=== PATIENT | male | born 1955 | race Caucasian/White ===

== ENCOUNTER 2021-07-07 13:26 | Emergency (ER) | payer BC ==
[~2021-07-07] VITALS: Ht 182.9 cm; Wt 150.0 kg
[2021-07-07] MEDS ORDERED: NITROGLYCERIN SUBLINGUAL 0.4 MG BOTTLE OF 25. SL PRN (13:45)
--- NOTE | 2021-07-07 13:45 | PHYS DOC ---
Adult General Chief Complaint Chief Complaint: CHEST PAIN HPI HPI Patient is a 65-year-old male presenting for chest pressure. Onset was this morning shortly after waking up. Nothing known makes better or worse. Reports pain is deep in mid chest and often radiates to her right shoulder and lower back. States severity of pain has waxed and waned, was 8 or 9 for several hours today but decreased down and on arrival to ER is 5 out of 10 in severity. Denies any significant history of CAD or other pulmonary abnormalities such as blood clots or other coagulopathies. Does admit he sees a junior architect in outpatient setting, had a stress test that was -2 years ago but currently takes a statin and Plavix daily for prevention purposes only. Denies any tobacco alcohol or illicit drug abuse. No recent sick contacts or travel. He is fully vaccinated against COVID-19 and received booster (Moderna) Review of Systems Review of Systems Fourteen body systems of review of systems have been reviewed. See HPI for pertinent positives and negative responses, other ortiz all other systems are negative, non-pertinent or non-contributory Allergies Allergies Allergies Coded Allergies Type Severity Reaction Last Updated Verified fenofibrate Allergy Intermediate flush red skin 07/07/21 Yes Uncoded Allergies Type Severity Reaction Last Updated Verified ASA Adverse Reaction Unknown 07/07/21 Physical Exam Physical Exam Constitutional: Well developed, well nourished, no acute distress, non-toxic appearance. HENT: Normocephalic, atraumatic, bilateral external ears normal, oropharynx moist, no oral exudates, nose normal. Eyes: PERRLA, EOMI, conjunctiva normal, no discharge. Neck: Normal range of motion, no tenderness, supple, no stridor. Cardiovascular: Heart rate regular, sinus rhythm, no murmurs rubs or gallops Lungs & Thorax: Bilateral breath sounds clear to auscultation Abdomen: Bowel sounds normal, soft, no tenderness, no masses, no pulsatile masses. Nonsurgical abdomen, no peritoneal signs Skin: Warm, dry, no erythema, no rash. Back: No tenderness, no CVA tenderness. Extremities: No tenderness, no cyanosis, no clubbing, ROM intact, no edema. Neurologic: Alert and oriented X 3, grossly normal motor & sensory function, no focal deficits noted. Psychologic: Affect normal, judgement normal, mood normal. Current Patient Data Vital Signs Vital Signs Date Time Temp Pulse Resp B/P (MAP) Pulse Ox O2 Delivery O2 Flow Rate FiO2 07/07/21 13:40 67 18 143/77 (99) Room Air Vital Signs Date Time Temp Pulse Resp B/P (MAP) Pulse Ox O2 Delivery O2 Flow Rate FiO2 07/07/21 13:40 67 18 143/77 (99) Room Air Lab Results Laboratory Tests Test 07/07/21 13:36 07/07/21 13:56 White Blood Count 7.9 x10^3/uL Red Blood Count 3.96 x10^6/uL Hemoglobin 12.7 g/dL Hematocrit 38.6 % Mean Corpuscular Volume 97 fL Mean Corpuscular Hemoglobin 32 pg Mean Corpuscular Hemoglobin Concent 33 g/dL Red Cell Distribution Width 13.8 % Platelet Count 210 x10^3/uL Neutrophils (%) (Auto) 73 % Lymphocytes (%) (Auto) 12 % Monocytes (%) (Auto) 9 % Eosinophils (%) (Auto) 6 % Basophils (%) (Auto) 1 % Neutrophils # (Auto) 5.8 x10^3uL Lymphocytes # (Auto) 0.9 x10^3/uL Monocytes # (Auto) 0.7 x10^3/uL Eosinophils # (Auto) 0.5 x10^3/uL Basophils # (Auto) 0.1 x10^3/uL D-Dimer (Chloe) 0.51 mg/L Sodium Level 142 mmol/L Potassium Level 4.2 mmol/L Chloride Level 106 mmol/L Carbon Dioxide Level 23 mmol/L Anion Gap 13 Blood Urea Nitrogen 30 mg/dL Creatinine 1.5 mg/dL Estimated GFR (Cockcroft-Gault) 47.0 Glucose Level 123 mg/dL Calcium Level 7.2 mg/dL Troponin I High Sensitivity 6 ng/L [id number] Natriuretic Peptide 436 pg/mL Current Medications Medications (Trade) Dose Ordered Sig/Aliyah Route PRN Reason Start Time Stop Time Status Last Admin Dose Admin Aspirin (Aspirin Chewable) 162 mg 1X ONCE PO 07/07/21 14:00 07/07/21 14:01 DC 07/07/21 14:28 Nitroglycerin (Nitrostat) 0.4 mg PRN Q5MIN PRN SL CP RATING > 08/1707/07/21 13:45 07/08/21 13:44 07/07/21 14:29 EKG EKG EKG ordered and interpreted by myself at 1345 hrs. is sinus rhythm at 65 bpm, unremarkable intervals, left axis deviation, no obvious ischemic findings, no STEMI Radiology/Procedures Radiology/Procedures XR CHEST 1V CLINICAL INDICATIONS: Reason: chest pain / Spl. Instructions: / History: COMPARISON: February 16, 2007. Findings: Bilateral chronic interstitial lung infiltrates or chronic bronchitis is seen. No new lung consolidation or pleural effusion or pneumothorax is apparent. The heart size, pulmonary vasculature, mediastinum and both purvi are unremarkable. IMPRESSION: Chronic interstitial lung infiltrates or chronic bronchitis bilaterally. No new abnormality. Electronically signed by: Bony Blue MD (07/07/2021 2:08 PM) [id number] Heart Score C/O Chest Pain: Yes HEART Score for Chest Pain: HEART Score for Chest Pain Response (Comments) Value History Moderately Suspicious 1 ECG Nonspecific Repolarizatio 1 Age >45 - < 65 1 Risk Factors 1 or 2 Risk Factors 1 Troponin < Normal Limit 0 Total 4 Risk Factors: Risk Factors: DM, Current or recent (<one month) smoker, HTN, HLP, family history of CAD, obesity. Risk Scores: Risk Factors: DM, Current or recent (<one month) smoker, HTN, HLP, family history of CAD, obesity. Course & Med Decision Making Course & Med Decision Making ABCs unremarkable HPI physical exam and comprehensive ER work-up nonconcerning for any emergent or surgical issues HEART score elevated, cannot PERC out but age-related d-dimer unremarkable I discussed and recommended cardiac observation given heart score in presenting symptoms but patient declined. I discussed without this I could not definitively rule out potentially life-threatening pathology such as ACS versus other and patient understood Patient reports he has previously scheduled PCP follow-up tomorrow and will discuss ER visit today need for close outpatient follow-up and provocative cardiac testing at that time which I feel is appropriate. Strict return precautions discussed and understood by patient, all questions and concerns addressed prior to ER departure Ariella Disclaimer Giannion Disclaimer This electronic medical record was generated, in whole or in part, using a voice recognition dictation system. Departure Departure: Impression: Primary Impression: Chest pain Disposition: HOME / SELF CARE / HOMELESS Condition: STABLE Referrals: TASHA RANKIN MD (PCP) Additional Instructions: You were seen for chest pain. Your workup did not show any acute abnormalities today, but does not indicate that you do not have underlying cardiovascular dis ease. You do need to follow up with your primary doctor tomorrow as previously scheduled to discuss need for close outpatient stress test and/or echocardiogram. You should return to the ED if you develop worsening chest pain, shortness of breath, fever, abnormal sweating, leg swelling, or any other new or concerning symptoms. JJ RADFORD DO Jul 07, 2021 13:45
[2021-07-07] MEDS ORDERED: ASPIRIN CHEWABLE 81 MG TABLET. PO ONE (14:00)
--- NOTE | 2021-07-07 14:10 | RAD ---
XR CHEST 1V CLINICAL INDICATIONS: Reason: chest pain / Spl. Instructions: / History: COMPARISON: February 16, 2007. Findings: Bilateral chronic interstitial lung infiltrates or chronic bronchitis is seen. No new lung consolidation or pleural effusion or pneumothorax is apparent. The heart size, pulmonary vasculature, mediastinum and both purvi are unremarkable. IMPRESSION: Chronic interstitial lung infiltrates or chronic bronchitis bilaterally. No new abnormali ty. Electronically signed by: Bony Blue MD (07/07/2021 2:08 PM) [id number]
[2021-07-07 14:13] LABS: BASO # 0.1 x10^3/uL (0.0-0.2); BASO % 1 % (0-3); EOS # 0.5 x10^3/uL (0.0-0.7); EOS % 6 % (0-3); HEMATOCRIT 38.6 % (39.0-53.0); HEMOGLOBIN 12.7 g/dL (13.0-17.5); LYMPH # 0.9 x10^3/uL (1.0-4.8); LYMPH % 12 % (24-48); MEAN CORPUSCULAR HEMOGLOBIN 32 pg (25-35); MEAN CORPUSCULAR HGB CONC 33 g/dL (31-37); MEAN CORPUSCULAR VOLUME 97 fL (79-100); MONO # 0.7 x10^3/uL (0.0-1.1); MONO % 9 % (0-9); NEUT # 5.8 x10^3uL (1.8-7.7); NEUT % 73 % (31-73); PLATELET COUNT 210 x10^3/uL (140-400); RED BLOOD COUNT 3.96 x10^6/uL (4.30-5.70); RED CELL DISTRIBUTION WIDTH 13.8 % (11.5-14.5); WHITE BLOOD COUNT 7.9 x10^3/uL (4.0-11.0)
[2021-07-07 14:27] LABS: CALCIUM 7.2 mg/dL (8.5-10.1); CREATININE 1.5 mg/dL (0.7-1.3); POTASSIUM 4.2 mmol/L (3.5-5.1)
[2021-07-07 14:29] VITALS: BP 141/71
--- NOTE | 2021-07-07 16:18 | EKG ---
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
== END 2021-07-07 17:07 | disposition home or self-care (01) ==
LOC: ER 13:26
DX: R07.89 Other chest pain (principal); Z88.8 Allergy status to other drugs, medicaments and biological substances
CPT/HCPCS: 36415; 71045; 80048; 83880; 84484; 85025; 85379; 93005; 99285

== ENCOUNTER 2021-12-04 04:28 | Emergency (ER) | payer BC, MEDICARE ==
[~2021-12-04] VITALS: Ht 182.9 cm; Wt 150.0 kg
[2021-12-04] MEDS ORDERED: PROMETH/CODEINE 6.25/10MG 5 ML SYRUP. PO STA (04:52)
--- NOTE | 2021-12-04 04:57 | PHYS DOC ---
Past History Additional Past Medical Histor: chronic pedal edema, non hodgkins lymphoma Past Surgical History: Appendectomy, Cancer Surgery, Cholecystectomy, Gastric Bypass, Other Additional Past Surgical Histo: left femur repair, left knee replacement, bilat rotat cuff repair Alcohol Use: None General Adult EDM: Chief Complaint: COUGH HPI: HPI: Patient is a 60 show male coming in for cough and chest pain. Patient states he has had a cough productive of whitish phlegm for the past 3 days. Then started having mid chest pain that is worse with taking a breath or movement. Patient denies any fevers, vomiting or diarrhea. Patient has been fully vaccinated against COVID with his booster, influenza and pneumococcal vaccines. No known sick contacts. Patient has an inhaler that he uses as needed and has been using more recently. Has a history of childhood asthma. Quit smoking 30 years ago, denies any history of COPD Review of Systems: Review of Systems: All other systems within normal limits except for as noted in the HPI Allergies: Allergies: Allergies Coded Allergies Type Severity Reaction Last Updated Verified fenofibrate Allergy Intermediate flush red skin 07/07/21 Yes Physical Exam: PE: Constitutional: Well developed, well nourished, no acute distress, non-toxic appearance. [] HENT: Normocephalic, atraumatic, bilateral external ears normal, nose normal. [] Eyes: PERRLA, conjunctiva normal, no discharge. [] Neck: No rigidity, supple, no stridor. [] Cardiovascular: Regular rate and rhythm, brisk cap refill [] Lungs & Thorax: Non labored symmetric respirations, no tachypnea or respiratory distress. Diffuse bilateral wheezing, chest pain reproducible with palpation [] Abdomen: Soft, nondistended. Skin: Warm, dry, no erythema, no rash. [] Back: Unremarkable Extremities: No deformities, range of motion grossly intact, no lower extremity edema [] Neurologic: Alert and oriented X 3, no focal deficits noted. [] Psychologic: Affect normal, judgement normal, mood normal. [] Current Patient Data: Vital Signs: Vital Signs Date Time Temp Pulse Resp B/P (MAP) Pulse Ox O2 Delivery O2 Flow Rate FiO2 12/04/21 04:28 68 24 157/80 (105) 92 Room Air EKG: EKG: Sinus rhythm, left axis deviation, no STEMI, heart rate 68 beats minute [] Radiology/Procedures: Radiology/Procedures: [] Heart Score: C/O Chest Pain: Yes HEART Score for Chest Pain: HEART Score for Chest Pain Response (Comments) Value History Slighlty/Non-Suspicious 0 Total 0 Risk Factors: Risk Factors: DM, Current or recent (<one month) smoker, HTN, HLP, family history of CAD, obesity. Risk Scores: Score 0 - 3: 2.5% MACE over next 6 weeks - Discharge Home Score 4 - 6: 20.3% MACE over next 6 weeks - Admit for Clinical Observation Score 7 - 10: 72.7% MACE over next 6 weeks - Early Invasive Strategies Course & Med Decision Making: Course & Med Decision Making Pertinent Labs and Imaging studies reviewed. (See chart for details) Patient states he is breathing easier after the DuoNeb. Still has some diffuse but improved wheezes. Pending second DuoNeb, chest x-ray, and rapid COVID and flu results at shift change Dragon Disclaimer: Ariella Disclaimer: This electronic medical record was generated, in whole or in part, using a voice recognition dictation system. Departure Departure: Referrals: SYLVESTER MACIEL MD (PCP) CHIKI PARKER MD Dec 04, 2021 04:57
[2021-12-04] MEDS ORDERED: methylPREDNISolone SOD SUCC PF 125 MG/2 ML VIAL. IV ONE (05:00)
[2021-12-04] MEDS ORDERED: IPRATRPIUM/ALBUTEROL 0.5/2.5MG 3 ML NEBU. NEB ONE ×2 (05:00→06:00)
[2021-12-04 05:03] LABS: BASO # 0.1 x10^3/uL (0.0-0.2); BASO % 1 % (0-3); EOS # 0.7 x10^3/uL (0.0-0.7); EOS % 9 % (0-3); HEMATOCRIT 38.6 % (39.0-53.0); HEMOGLOBIN 13.2 g/dL (13.0-17.5); LYMPH # 1.1 x10^3/uL (1.0-4.8); LYMPH % 13 % (24-48); MEAN CORPUSCULAR HEMOGLOBIN 33 pg (25-35); MEAN CORPUSCULAR HGB CONC 34 g/dL (31-37); MEAN CORPUSCULAR VOLUME 97 fL (79-100); MONO # 0.7 x10^3/uL (0.0-1.1); MONO % 9 % (0-9); NEUT # 5.6 x10^3uL (1.8-7.7); NEUT % 68 % (31-73); PLATELET COUNT 236 x10^3/uL (140-400); RED BLOOD COUNT 3.98 x10^6/uL (4.30-5.70); RED CELL DISTRIBUTION WIDTH 14.4 % (11.5-14.5); WHITE BLOOD COUNT 8.3 x10^3/uL (4.0-11.0)
--- NOTE | 2021-12-04 05:09 | EKG ---
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
[2021-12-04 05:12] LABS: CALCIUM 7.8 mg/dL (8.5-10.1); CREATININE 1.3 mg/dL (0.7-1.3); GFR 55.2; POTASSIUM 4.4 mmol/L (3.5-5.1)
[2021-12-04 05:25] LABS: ALBUMIN 3.7 g/dL (3.4-5.0); ALBUMIN/GLOBULIN RATIO 1.4 (1.0-1.7); TOTAL BILIRUBIN 0.8 mg/dL (0.2-1.0); TOTAL PROTEIN 6.4 g/dL (6.4-8.2)
--- NOTE | 2021-12-04 06:02 | RAD ---
Study: XR CHEST 2V Indication: Cough. Comparison: 07/07/2021 Findings: Unchanged cardiomediastinal silhouette. Slightly increased perihilar infiltrates. Peribronchial cuffi ng and interstitial prominence also seen previously. No pleural effusion or pneumothorax. Impression: Mildly increased perihilar infiltrates from the 07/07/2021 exam could indicate an atypical infectious process in the appropriate clinical setting. Electronically signed by: BLANCA LEVINE MD (12/04/2021 5:59 AM) [facility]
[2021-12-04 06:31] LABS: INFLUENZA A PATIENT NEGATIVE (NEGATIVE); INFLUENZA B PATIENT NEGATIVE (NEGATIVE)
[2021-12-04 06:35] VITALS: BP 149/73
[2021-12-04] MEDS ORDERED: DOXY100C3 PO ×2 (06:50→07:04)
[2021-12-04] MEDS ORDERED: PRED20TA PO ×2 (06:50→07:04)
[2021-12-04] MEDS ORDERED: ALBU2.5V8 INH ×2 (06:50→07:04)
--- NOTE | 2021-12-04 06:50 | PHYS DOC ---
Past History Additional Past Medical Histor: chronic pedal edema, non hodgkins lymphoma Past Surgical History: Appendectomy, Cancer Surgery, Cholecystectomy, Gastric Bypass, Other Additional Past Surgical Histo: left femur repair, left knee replacement, bilat rotat cuff repair Alcohol Use: None General Adult EDM: Chief Complaint: COUGH HPI: HPI: Please see note by Dr. Romero for initial H&P Current Medications: Current Meds: Current Medications Medications (Trade) Dose Ordered Sig/Aliyah Start Time Stop Time Status Last Admin Dose Admin Albuterol/ Ipratropium (Duoneb) 3 ml 1X ONCE 12/04/21 06:00 12/04/21 06:01 DC 12/04/21 05:49 3 ML Methylprednisolone Sodium Succinate (SOLU-Medrol 125MG VIAL) 125 mg 1X ONCE 12/04/21 05:00 12/04/21 05:03 DC 12/04/21 05:20 125 MG Promethazine HCl/ Codeine (Phenergan With Codeine Oral Syrup) 5 ml 1X STAT 12/04/21 04:52 12/04/21 05:03 DC 12/04/21 05:21 5 ML Allergies: Allergies: Allergies Coded Allergies Type Severity Reaction Last Updated Verified fenofibrate Allergy Intermediate flush red skin 07/07/21 Yes Current Patient Data: Labs: Laboratory Tests Test 12/04/21 04:40 12/04/21 05:44 White Blood Count 8.3 x10^3/uL (4.0-11.0) Red Blood Count 3.98 x10^6/uL (4.30-5.70) L Hemoglobin 13.2 g/dL (13.0-17.5) Hematocrit 38.6 % (39.0-53.0) L Mean Corpuscular Volume 97 fL (79-100) Mean Corpuscular Hemoglobin 33 pg (25-35) Mean Corpuscular Hemoglobin Concent 34 g/dL (31-37) Red Cell Distribution Width 14.4 % (11.5-14.5) Platelet Count 236 x10^3/uL (140-400) Neutrophils (%) (Auto) 68 % (31-73) Lymphocytes (%) (Auto) 13 % (24-48) L Monocytes (%) (Auto) 9 % (0-9) Eosinophils (%) (Auto) 9 % (0-3) H Basophils (%) (Auto) 1 % (0-3) Neutrophils # (Auto) 5.6 x10^3uL (1.8-7.7) Lymphocytes # (Auto) 1.1 x10^3/uL (1.0-4.8) Monocytes # (Auto) 0.7 x10^3/uL (0.0-1.1) Eosinophils # (Auto) 0.7 x10^3/uL (0.0-0.7) Basophils # (Auto) 0.1 x10^3/uL (0.0-0.2) Sodium Level 144 mmol/L (136-145) Potassium Level 4.4 mmol/L (3.5-5.1) Chloride Level 106 mmol/L (98-107) Carbon Dioxide Level 25 mmol/L (21-32) Anion Gap 13 (6-14) Blood Urea Nitrogen 21 mg/dL (8-26) Creatinine 1.3 mg/dL (0.7-1.3) Estimated GFR (Cockcroft-Gault) 55.2 BUN/Creatinine Ratio 16 (6-20) Glucose Level 125 mg/dL (70-99) H Calcium Level 7.8 mg/dL (8.5-10.1) L Total Bilirubin 0.8 mg/dL (0.2-1.0) Aspartate Amino Transferase (AST) 18 U/L (15-37) Alanine Aminotransferase (ALT) 30 U/L (16-63) Alkaline Phosphatase 122 U/L (46-116) H Troponin I High Sensitivity 7 ng/L (4-75) RJ-Qeu-W-Type Natriuretic Peptide 289 pg/mL (0-124) H Total Protein 6.4 g/dL (6.4-8.2) Albumin 3.7 g/dL (3.4-5.0) Albumin/Globulin Ratio 1.4 (1.0-1.7) Influenza Type A (Rapid) Negative (NEGATIVE) Influenza Type B (Rapid) Negative (NEGATIVE) SARS-CoV-2 Antigen (Rapid) Negative (NEGATIVE) Vital Signs: Vital Signs Date Time Temp Pulse Resp B/P (MAP) Pulse Ox O2 Delivery O2 Flow Rate FiO2 12/04/21 05:54 95 Room Air 12/04/21 05:43 72 20 132/48 (76) EKG: EKG: [] Radiology/Procedures: Radiology/Procedures: [] Heart Score: C/O Chest Pain: N/A Risk Factors: Risk Factors: DM, Current or recent (<one month) smoker, HTN, HLP, family history of CAD, obesity. Risk Scores: Score 0 - 3: 2.5% MACE over next 6 weeks - Discharge Home Score 4 - 6: 20.3% MACE over next 6 weeks - Admit for Clinical Observation Score 7 - 10: 72.7% MACE over next 6 weeks - Early Invasive Strategies Course & Med Decision Making: Course & Med Decision Making Pertinent Labs and Imaging studies reviewed. (See chart for details) [] Is a 66-year-old male came in with cough and shortness of breath. Patient chest x-ray is indicative of pneumonia. Labs are fairly unremarkable, influenza and COVID screens are negative. Patient was given a DuoNeb treatment and on reassessment he still has some wheezes but overall improved. Sats are 94% on room air, patient is a good candidate for out patient treatment, he is in stable condition at this time. Dragon Disclaimer: Dragon Disclaimer: This electronic medical record was generated, in whole or in part, using a voice recognition dictation system. Departure Departure: Impression: Primary Impression: Pneumonia Disposition: HOME / SELF CARE / HOMELESS Condition: STABLE Referrals: SYLVESTER MACIEL MD (PCP) Patient Instructions: Pneumonia, Adult Scripts Prednisone (PREDNISONE) 20 Mg Tablet 40 MG PO DAILY for bronchitis for 3 Days, #6 TAB Prov: MURALI MATA MD 12/04/21 Albuterol Sulfate (PROAIR HFA INHALER) 8.5 Gm Hfa.aer.ad 2 PUFF INH PRN Q6HRS PRN for SHORTNESS OF BREATH for 10 Days, #1 INHALER 0 Refills Prov: MURALI MATA MD 12/04/21 Doxycycline Hyclate (DOXYCYCLINE HYCLATE) 100 Mg Capsule 1 CAP PO BID for pneumonia, #14 CAP Prov: MURALI MATA MD 12/04/21 MURALI MATA MD Dec 04, 2021 06:50
== END 2021-12-04 07:15 | disposition home or self-care (01) ==
LOC: ER 04:28
DX: J18.9 Pneumonia, unspecified organism (principal); Z20.822 Contact with and (suspected) exposure to COVID-19; Z88.8 Allergy status to other drugs, medicaments and biological substances
CPT/HCPCS: 71046; 80053; 83880; 84484; 85025; 87428; 93005; 94640; 96374; 99285; C9803; J2930; U0003